=== PATIENT | female | born 1965 | race African-American/Black ===

== ENCOUNTER 2023-06-12 06:54 | Day surgery (SDC) | payer OTHER ==
[~2023-06-12] VITALS: Ht 163.8 cm; Wt 118.9 kg
[2023-06-12] MEDS ORDERED: LIDOCAINE 2% 11 ML JELLY TP ONE (06:55)
[2023-06-12] MEDS ORDERED: LIDOCAINE 4% 50 ML SOLUTION TP ONE (06:55)
[2023-06-12] MEDS ORDERED: BENZOCAINE 20% 50 MCG/SPRAY 57 GM TP ONE (06:55)
[2023-06-12] MEDS ORDERED: ALBUTEROL SULFATE 2.5 MG/0.5 ML NEB SOLUTION NEB ONE (06:55)
[2023-06-12] MEDS ORDERED: SODIUM CHLORIDE 0.9% 1,000 ML ONE (07:41)
[2023-06-12] MEDS ORDERED: MIDAZOLAM HCL 2 MG/2 ML VIAL ONE (08:13)
[2023-06-12] MEDS ORDERED: FentaNYL CITRATE PF 100 MCG/2 ML VIAL ONE (08:13)
[2023-06-12 08:36] LABS: GLUCOMETER DEV NAME(LOC) SDS.; GLUCOSE,POINT OF CARE 94 MG/DL (70-110)
[2023-06-12] MEDS ORDERED: SODIUM CHLORIDE 0.9% 1,000 ML IV ONE (08:45)
[2023-06-12] MEDS ORDERED: MethylPREDNISolone SOD SUCC 125 MG/2 ML VIAL IVP ONE (09:00)
[2023-06-12 09:18] VITALS: PULSE 77; RESP 24; O2SAT 100
[2023-06-12] MEDS ORDERED: MethylPREDNISolone SOD SUCC 125 MG/2 ML VIAL ONE (09:31)
[2023-06-12] MEDS ORDERED: HYDR25TA2 PO ×2 (09:31→09:46)
[2023-06-12] MEDS ORDERED: OXYC10TA59 PO (09:31)
[2023-06-12] MEDS ORDERED: EXEN2AUT SQ (09:47)
[2023-06-12] MEDS ORDERED: ALBU18HF12 IH (09:48)
== END 2023-06-12 11:36 | disposition home or self-care (01) ==
LOC: SURGERY 06:54
PROVIDERS: ATTEND Internal Medicine Critical Care Medicine
DX: J38.4 Edema of larynx (principal); B37.0 Candidal stomatitis; Z79.899 Other long term (current) drug therapy; Z87.01 Personal history of pneumonia (recurrent); Z98.890 Other specified postprocedural states; Z88.0 Allergy status to penicillin; E11.9 Type 2 diabetes mellitus without complications
CPT/HCPCS: 31623; 82962; 87206; 87101; 87220; 87070; 88108; 31624; 94640; 71045; 87015; J3010; J2250; J2930; Q9967; J7030; J7613; Z7610